=== PATIENT | male | born 2000 | race Caucasian/White ===

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

== ENCOUNTER 2022-04-20 10:31 | Emergency (ER) | payer BC ==
[2022-04-20] MEDS ORDERED: HYDROmorphone 1 MG/ML Syringe IVPUSH ONE (10:44)
[2022-04-20] MEDS ORDERED: Sodium Chloride 0.9% 10 ML Syringe FLUSH PRN (10:44)
[2022-04-20] MEDS ORDERED: Ketamine 200 MG/20 ML MDV ONE (10:54)
[2022-04-20] MEDS ORDERED: Midazolam 1 MG/ML 2 ML SDV ONE (10:54)
[2022-04-20] MEDS ORDERED: Sodium Chloride 0.9% 1,000 ML ONE (10:56)
[2022-04-20] MEDS ORDERED: Midazolam 1 MG/ML 2 ML SDV IVPUSH ONE (11:00)
[2022-04-20] MEDS ORDERED: Ketamine 200 MG/20 ML MDV IVPUSH ONE (11:00)
[2022-04-20] MEDS ORDERED: Sodium Chloride 0.9% 1,000 ML IV SCH (13:15)
== END 2022-04-20 13:23 ==
LOC: KA.ED 10:31
DX: S82.201A Unspecified fracture of shaft of right tibia, initial encounter for closed fracture (principal); Z79.899 Other long term (current) drug therapy; W00.0XXA Fall on same level due to ice and snow, initial encounter
CPT/HCPCS: 73590-RT; 96374; 99152; 99283; 99285-25; J1170; J2250; J7030